=== PATIENT | male | born 1965 | race Caucasian/White ===

== ENCOUNTER 2019-08-05 23:17 | Observation (INO) ==
[2019-08-05] MEDS ORDERED: ASPIRIN 81 MG (BABY) CHEWABLE TABLET PO ONE ×2 (23:31→23:32)
[2019-08-05] MEDS ORDERED: LORazepam 2 MG/1 ML VIAL IVP ONE ×2 (23:31→23:35)
[2019-08-05] MEDS ORDERED: Sodium Chloride 0.9% 1,000 ML PRIMARY IV ONE (23:32)
[2019-08-05] MEDS ORDERED: ASPIRIN 81 MG (BABY) CHEWABLE TABLET ONE (23:33)
[2019-08-05] MEDS ORDERED: LORazepam 2 MG/1 ML VIAL ONE (23:34)
[2019-08-05 23:46] LABS: BUN/CREATININE RATIO 19.23 (6-20); SERUM ALBUMIN 4.2 g/dL (3.5-4.8)
[2019-08-06 00:07] LABS: Hematocrit [HCT] 45.1 % (42.0-52.0); Hemoglobin [HGB] 15.3 g/dL (14.0-18.0); MEAN CORPUSCULAR HGB CONC 33.9 g/dL (33-37); MEAN CORPUSCULAR VOLUME 96 FL (80-90); RED BLOOD COUNT 4.68 10^6/uL (4.70-6.10)
[2019-08-06 00:08] LABS: BASOPHILS % (AUTO) 0.4 % (0-1); EOSINOPHILS # (AUTO) 0.24 10*3/UL; EOSINOPHILS % (AUTO) 2.4 % (0-8); LYMPHOCYTES # (AUTO) 1.94 10*3/uL; NEUTROPHILS # (AUTO) 7.13 10*3/UL; NEUTROPHILS % (AUTO) 71.7 % (50-80)
[2019-08-06 00:09] LABS: BASOPHILS # (AUTO) 0.04 10*3/UL; PLATELET MORPHOLOGY COMMENT NORMAL MORPHOLOGY (NORM); RBC MORPHOLOGY COMMENT NORMAL MORPHOLOGY (NORM); WBC MORPHOLOGY COMMENT NORMAL MORPHOLOGY (NORM)
[2019-08-06 00:12] LABS: VENOUS PH 7.42 (7.32-7.42)
[2019-08-06] MEDS ORDERED: NITROGLYCERIN 0.4 MG SL TAB (BOTTLE OF 3) SL PRN (01:59)
[2019-08-06] MEDS ORDERED: CALCIUM CARBONATE 500 MG (TUMS) CHEWABLE TABLET PO PRN (01:59)
[2019-08-06] MEDS ORDERED: ONDANSETRON 4 MG/2 ML VIAL IVP PRN (01:59)
[2019-08-06] MEDS ORDERED: LORazepam 1 MG TABLET PO PRN (01:59)
[2019-08-06] MEDS ORDERED: LIDOCAINE W/ SODIUM BICARB 0.5 ML SYR SUBD PRN (01:59)
[2019-08-06 04:38] LABS: CHOL/HDL RATIO 5.95 RATIO (0-4.0)
[2019-08-06 05:23] LABS: AMPHETAMINE SCREEN NEGATIVE (NEG); CANNABINOID SCREEN,URINE NEGATIVE (NEG); COCAINE SCREEN NEGATIVE (NEG); METHADONE URINE SCREEN NEGATIVE (NEG); METHAMPHETAMINES SCREEN,URINE NEGATIVE (NEG); OPIATE SCREEN,URINE POSITIVE (NEG); URINE SAMPLE TYPE VOIDED SPECIMEN; URINE SPECIFIC GRAVITY - MAN 1.027
[2019-08-06] MEDS ORDERED: OMEPRAZOLE 20 MG CAPSULE PO SCH (07:00)
[2019-08-06] MEDS ORDERED: PANTOPRAZOLE 40 MG TABLET PO ONE (15:59)
[2019-08-07 05:13] LABS: BASOPHILS % (AUTO) 0.4 % (0-1); EOSINOPHILS % (AUTO) 6.1 % (0-8); Hematocrit [HCT] 45.9 % (42.0-52.0); Hemoglobin [HGB] 15.3 g/dL (14.0-18.0); MEAN CORPUSCULAR HGB CONC 33.3 g/dL (33-37); MEAN CORPUSCULAR VOLUME 96 FL (80-90); MONOCYTES % (AUTO) 8.8 % (5-15); NEUTROPHILS % (AUTO) 58.5 % (50-80); RED BLOOD COUNT 4.75 10^6/uL (4.70-6.10)
[2019-08-07 05:14] LABS: BASOPHILS # (AUTO) 0.03 10*3/UL; EOSINOPHILS # (AUTO) 0.52 10*3/UL; LYMPHOCYTES # (AUTO) 2.22 10*3/uL; MONOCYTES # (AUTO) 0.74 10*3/UL (0.3-0.8); NEUTROPHILS # (AUTO) 4.95 10*3/UL; PLATELET MORPHOLOGY COMMENT NORMAL MORPHOLOGY (NORM); RBC MORPHOLOGY COMMENT NORMAL MORPHOLOGY (NORM); WBC MORPHOLOGY COMMENT NORMAL MORPHOLOGY (NORM)
[2019-08-07] MEDS ORDERED: PANTOPRAZOLE 40 MG TABLET PO SCH (07:00)
[2019-08-07] MEDS ORDERED: ASPIRIN 81 MG (BABY) CHEWABLE TABLET PO SCH (09:00)
[2019-08-07 16:05] VITALS: BP 141/78; RESP 20; TEMP 98.4
[2019-08-07 17:03] VITALS: O2SAT 93
[2019-08-07] MEDS ORDERED: CLOPIDOGREL BISULFATE 300 MG TABLET PO ONE (17:46)
[2019-08-07] MEDS ORDERED: CYANOCOBALAMIN 1000 MCG/1 ML VIAL IM ONE ×2 (17:58)
[2019-08-07] MEDS ORDERED: CYANOCOBALAMIN 1000 MCG/1 ML VIAL IM SCH (18:00)
== END 2019-08-07 18:45 | disposition short-term general hospital (02) ==
LOC: MED/SURG 23:17 → ER 23:17 → MED/SURG 08-06 01:58
PROVIDERS: ADMIT Family Medicine; ATTEND Family Medicine